=== PATIENT | female | born 1995 | race American Indian/Alaskan Native ===

== ENCOUNTER 2024-02-13 06:52 | Inpatient (IN) | payer BC ==
[~2024-02-13 06:52] MED LIST: Bupivacaine 0.25% 10 ML SDV ONE
[2024-02-13] MEDS ORDERED: Lidocaine 1% 50 ML MDV INJECT PRN (08:05)
[2024-02-13] MEDS ORDERED: Calcium Carbonate 500 MG Tab.Chew PO PRN (08:05)
[2024-02-13] MEDS ORDERED: Nalbuphine 10 MG/1 ML Vial IVPUSH PRN (08:05)
[2024-02-13] MEDS ORDERED: Famotidine 20 MG Tab PO PRN (08:05)
[2024-02-13] MEDS: Oxytocin/0.9 % Sodium Chloride 30 UNIT/500 ML BAG IV SCH (08:25)
[2024-02-13] MEDS: Lactated Ringers 1,000 ML IV SCH (08:25)
[2024-02-13 08:28] LABS: BASOPHILS PERCENT AUTO 0.3 % (0.0-1.0); EOSINOPHILS ABSOLUTE AUTO 0.1 K/mm3 (0.0-0.4); EOSINOPHILS PERCENT AUTO 1.1 % (0.0-6.0); HEMATOCRIT 34.4 % (37.0-47.0); HEMOGLOBIN 11.9 gm/dl (12.0-16.0); IMMATURE GRAN ABSOLUTE AUTO 0.26 K/mm3 (0.00-0.05); IMMATURE GRAN PERCENT AUTO 2.3 % (0.0-0.4); LYMPHOCYTES ABSOLUTE AUTO 1.5 K/mm3 (1.0-4.8); LYMPHOCYTES PERCENT AUTO 13.7 % (24.0-44.0); MEAN CORPUSCULAR HEMOGLOBIN 31.4 pg (28.0-32.0); MEAN CORPUSCULAR HGB CONC 34.6 g/dl (32.0-36.0); MEAN CORPUSCULAR VOLUME 90.8 fl (83.0-99.0); MEAN PLATELET VOLUME 11.8 fl (9.4-12.3); MONOCYTES ABSOLUTE AUTO 0.8 K/mm3 (0.0-0.8); MONOCYTES PERCENT AUTO 7.4 % (0.0-8.0); NEUTROPHILS ABSOLUTE AUTO 8.5 K/mm3 (1.8-7.7); NEUTROPHILS PERCENT AUTO 75.2 % (41.0-71.0); PLATELET COUNT,PLT 199 K/mm3 (150-400); RED BLOOD CELL COUNT 3.79 M/mm3 (4.10-5.30); WHITE BLOOD CELL COUNT,WBC 11.28 K/mm3 (3.9-11.3)
[2024-02-13] MEDS ORDERED: Ropivacaine 200 MG in Premix Bag 1 BAG EPIDUR PRN (08:42)
[2024-02-13] MEDS ORDERED: diphenhydrAMINE 50 MG/ML SDV IVPUSH PRN (08:42)
[2024-02-13] MEDS ORDERED: ePHEDrine 50 MG/ML SDV IVPUSH PRN (08:42)
[2024-02-13] MEDS: Ropivacaine 200 MG in Premix Bag 1 BAG EPIDUR PRN (16:52)
[2024-02-13] MEDS: Ondansetron 4 MG/2 ML SDV IVPUSH PRN (18:57)
[2024-02-13] MEDS: Acetaminophen 325 MG Tab PO PRN (19:16)
[2024-02-13] MEDS: Witch Hazel Medicated Pads 40/Jar TOP PRN (23:14)
[2024-02-13] MEDS: Ibuprofen 600 MG Tab PO SCH (23:14)
[2024-02-13] MEDS: Benzocaine/Menthol 20%-0.5% Spray 78 GM Cannister TOP PRN (23:15)
[2024-02-14] MEDS: Acetaminophen 325 MG Tab PO PRN (00:21)
[2024-02-14] MEDS: Docusate Sodium 100 MG Cap PO PRN (16:04)
== END 2024-02-14 20:32 | disposition home or self-care (01) | DRG 560 ==
LOC: JD.OB 06:52 → OBSVTOIN 21:10 → JD.OB 21:11
PROVIDERS: ADMIT Family Medicine; ATTEND Family Medicine
PROC: 10E0XZZ Delivery of Products of Conception, External Approach (ICD-10-PCS; principal; 2024-02-13)
PROC: 10907ZC Drainage of Amniotic Fluid, Therapeutic from Products of Conception, Via Natural or Artificial Opening (ICD-10-PCS; 2024-02-13)
PROC: 3E033VJ Introduction of Other Hormone into Peripheral Vein, Percutaneous Approach (ICD-10-PCS; 2024-02-13)
PROC: 0HQ9XZZ Repair Perineum Skin, External Approach (ICD-10-PCS; 2024-02-13)
PROC: 3E0R3BZ Introduction of Anesthetic Agent into Spinal Canal, Percutaneous Approach (ICD-10-PCS; 2024-02-13)
PROC: 00HU33Z Insertion of Infusion Device into Spinal Canal, Percutaneous Approach (ICD-10-PCS; 2024-02-13)
PROC: 3E0334Z Introduction of Serum, Toxoid and Vaccine into Peripheral Vein, Percutaneous Approach (ICD-10-PCS; 2024-02-14)
DX: O99.284 Endocrine, nutritional and metabolic diseases complicating childbirth (principal); Z37.0 Single live birth; E89.0 Postprocedural hypothyroidism; O70.0 First degree perineal laceration during delivery; O26.893 Other specified pregnancy related conditions, third trimester; Z67.11 Type A blood, Rh negative; Z3A.39 39 weeks gestation of pregnancy
CPT/HCPCS: 01967; 36415; 51701; 59025; 59409; 85025; 85461; 86592; 86850; 86900; 86901; A9270-GY; C1758; J0665; J2405; J2791; J2795; J7120; J7999